=== PATIENT | male | born 1955 | race Caucasian/White ===

== ENCOUNTER 2024-09-15 17:43 | Emergency (ER) | payer MEDICARE ==
[~2024-09-15] VITALS: Ht 182.9 cm; Wt 79.4 kg
[2024-09-15 18:40] VITALS: PULSE 78; RESP 18; TEMP 98.1
[2024-09-15] MEDS ORDERED: HYDROCODON-ACE1 EA12 PO (20:36)
[2024-09-15] MEDS: HYDROCODONE/APAP 7.5MG-325MG 1 EA TAB PO ONE (20:53)
[2024-09-15 21:22] VITALS: BP 175/96; PULSE 78; RESP 16; O2SAT 99
== END 2024-09-15 21:20 | disposition home or self-care (01) ==
LOC: ER 18:03 → MERGE 18:03 → ER 21:20
DX: S62.613A Displaced fracture of proximal phalanx of left middle finger, initial encounter for closed fracture (principal); W20.8XXA Other cause of strike by thrown, projected or falling object, initial encounter; Y92.89 Other specified places as the place of occurrence of the external cause
CPT/HCPCS: 99284

== ENCOUNTER → 2025-02-05 | Outpatient (REF) | payer MEDICARE ==
[~2025-02-05] MED LIST: HYDROCODON-ACE1 EA12 PO
== END ==
LOC: MRI 08:43
PROVIDERS: ATTEND Nurse Practitioner Primary Care
DX: H53.2 Diplopia (principal)
CPT/HCPCS: 70551